=== PATIENT | male | born 1960 | race Caucasian/White ===

== ENCOUNTER 2025-05-26 14:10 | Outpatient (AMB) | payer MEDICARE, MEDICAID, SELFPAY ==
--- NOTE | 2025-05-26 14:06 | HO.NEPHOV_ITS ---
Vital Signs 05/26/25 14:09 Height 5 ft 7 in Weight 288 lb BMI 45.1 BP 124/62 Blood Pressure Location Lt brachial Position Sitting Pulse 96 Pulse Source Pulse Oximeter Pulse Oximetry (%) 96 Oxygen Delivery Method Room Air Intake Visit Reasons: ENP: Diabetic kidney disease [place] Operator Required: No Accompanied by: Self / Same As Patient Allergies No Known Allergies Allergy (Verified 05/26/25 14:13) HPI Comments Details: The patient is a 64 year old individual presenting for evaluation of a change in kidney function. Blood tests from March showed kidney function was around 39%. The patient has a long-standing history of diabetes mellitus for many years, which is reportedly under control with a recent A1C under 6. The patient reports no protein in the urine and denies a history of high blood pressure. There is no personal or family history of heart problems, congestive heart failure, or kidney problems. The patient reports some chronic puffiness in the legs and has been on two diuretics, furosemide and metolazone, for a while. Medications include lisino pril 5 mg, Farxiga, furosemide, metolazone taken at night, and potassium supplements (two pills in the morning and two in the evening). The patient denies the use of NSAIDs like Aleve, Advil, or Motrin. [facility] Medical History (Updated 05/26/25 @ 14:24 by David Akbar MD) Unsteady gait when walking CKD (chronic kidney disease) Vitamin deficiency GERD (gastroesophageal reflux disease) Diabetes mellitus with stage 3 chronic kidney disease Hypercalcemia Morbid obesity Mixed hyperlipidemia Essential hypertension Diabetes Venous stasis of both lower extremities Diabetes mellitus with nephropathy Gout Surgical History History of vasectomy Review of Systems Const Denies fever(s) and Denies weight loss Card Denies chest pain Resp Denies cough and Denies hemoptysis GI Denies abdominal pain, Denies diarrhea and Denies nausea Musc Denies back pain Neuro Denies focal weakness Physical Exam Vital Signs: Last Vital Signs Pulse 96 05/26/25 14:09 BP 124/62 05/26/25 14:09 Pulse Ox 96 05/26/25 14:09 Oxygen Delivery Method Room Air 05/26/25 14:09 BMI result Body Mass Index 45.1 Comfortable Obese Neck supple no JVD. Lungs entry equal no rales. Heart S1-S2 heard no gallop or rub. Abdomen soft nontender. Neuro alert awake oriented. No asterixis. Extremities 1 + edema with pigmentary changes. Assessment & Plan Assessment & Plan (1) CKD (chronic kidney disease): Code(s): N18.9 - Chronic kidney disease, unspecified Category: Medical Plan 1. Chronic Kidney Disease Likely has diabetic kidney disease. The could be a component of acute kidney injury due to hypoperfusion from diuretics. - The patient's kidney function is noted to be at 39%, - It is recommended to discontinue metolazone and use it only as needed for significant leg swelling to assess its impact on kidney function. - The patient will continue lisinopril and Farxiga, which are beneficial for kidney protection. - Blood work will be ordered for next week to recheck kidney function and pot assium levels. - A renal ultrasound will be arranged to further evaluate the kidneys. - A report will be sent to Dr. Xavier. 2. Type 2 Diabetes Mellitus With Chronic Kidney Disease - The patient has a long history of diabetes, which is a likely contributor to the decreased kidney function. - Urine tests will be ordered to check for proteinuria, - The patient will continue taking Farxiga 3. Edema In Lower Extremities - The patient is on two diuretics, furosemide and metolazone, for leg swelling. - The plan is to stop daily metolazone and use it only as needed if swelling increases. - With the reduction in diuretic use, potassium supplementation will be decreased from two pills twice a day to two pills once a day. - The patient was advised to reduce salt in the diet to help manage fluid retention. Orders: Orders UA and rflx microscopic 1 Week N18.9 - Chronic kidney disease, unspecified Complete Blood Count no Diff 1 Week N18.9 - Chronic kidney disease, unspecified US renal BI 1 Week N18.9 - Chronic kidney disease, unspecified Basic Metabolic Panel 1 Week N18.9 - Chronic kidney disease, unspecified Creatinine Urine 1 Week N18.9 - Chronic kidney disease, unspecified Total Protein Urine Random 1 Week N18.9 - Chronic kidney disease, unspecified Coding Level of Care Code New Pt Level 4 (58244) Diagnoses CKD (chronic kidney disease) N18.9
[2025-05-26 14:09] VITALS: BP 124/62; PULSE 96; O2SAT 96; BMI 45.1
--- OUTSIDE RECORDS SUMMARY | 2025-05-26 17:09 | XMS_ITS ---
Author Name [facility] Organization Unknown History of Medication Use Medication Directions Dispensed Refills Start Date End Date Stat rosuvastatin 20 mg tablet Take 1 tablet by mouth once daily 07/27/2024 active Trulicity 1.5 mg/0.5 mL subcutaneous pen injector INJECT 1/2 (ONE-HALF) ML SUBCUTANEOUSLY ONCE A WEEK 07/06/2024 active FreeStyle Kevyn 14 Day Sensor kit USE DIRECTED CHANGE EVERY 14 DAYS 06/30/2024 active Lantus Solostar U-100 Insulin 100 unit/mL (3 mL) subcutaneous pen INJECT 50 UNITS SUBCUTANEOUSLY IN THE MORNING AND 40 IN THE EVENING 06/30/2024 active Trulicity 0.75 mg/0.5 mL subcutaneous pen injector Inject 0.5 mL (0.75 mg total) under the skin every 7 days. 10/02/2023 4 completed meloxicam 15 mg tablet Take 1 tablet (15 mg total) by mouth daily. 01/17/2022 5 completed lisinopril 5 mg tablet 1 tablet (5 mg total) daily. 07/21/2018 active Levemir FlexTouch U-100 Insulin 100 unit/mL (3 mL) subcutaneous pen 20u in am, 80u in pm 06/17/2018 5 completed Farxiga 10 mg tablet 1 tablet (10 mg total) daily. 06/03/2018 active furosemide 40 mg tablet 1 tablet (40 mg total) daily. 05/26/2018 active metolazone 2.5 mg tablet 1 tablet (2.5 mg total) daily. 05/26/2018 active insulin lispro (U-100) 100 unit/mL subcutaneous pen Inject under the skin. 5 completed aspirin 81 mg tablet,delayed release Take 1 tablet (81 mg total) by mouth daily. active cyanocobalamin (vit B-12) 1,000 mcg tablet Take by mouth. active febuxostat 40 mg tablet Take by mouth. active rosuvastatin 10 mg tablet active aspirin enteric coated (Maribel Aspirin EC Low Dose) 81 MG EC tablet Take 81 mg by mouth daily. active dapagliflozin (dapagliflozin) 10 MG tablet Take by mouth every morning. active dulaglutide (TRULICITY) 1.5 MG/0.5ML prefilled pen injection Inject 1.5 mg under the skin once a week. active febuxostat (ULORIC) 40 MG tablet Take 40 mg by mouth daily. active furosemide (LASIX) 40 MG tablet Take 40 mg by mouth daily. active lisinopril (PRINIVIL,ZeSTRIL) 5 MG tablet Take 5 mg by mouth daily. active MELOXICAM PO Take by mouth. acti ve metolazone (ZAROXOLYN) 2.5 MG tablet Take 2.5 mg by mouth every morning. active rosuvastatin (CRESTOR) 20 MG tablet Take 20 mg by mouth daily. 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, subsequent encounter active [facility] Encounters Encounter Type Encounter Reason Primary Diagnosis Location Date Ambulatory [facility], 12/2024 Ambulatory [facility], 07/2024 Ambulatory [facility], 09/30 Ambulatory [facility], 01/2025 Ambulatory [facility], 05/02 Ambulatory 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, 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, subsequent encounter [facility] 02/12/2023 Ambulatory Unilateral prima ry osteoarthritis, right knee [facility] 10/25/2021 Ambulatory Unilateral prima ry osteoarthritis, right knee [facility] 10/18/2021 Ambulatory Unilateral prima ry osteoarthritis, right knee [facility] 10/11/2021 Ambulatory Unilateral prima ry osteoarthritis, right knee [facility] 10/04/2021 Ambulatory Unilateral prima ry osteoarthritis, right knee [facility] 09/18/2021 Ambulatory [facility] 09/11/2021 Ambulatory Unilateral prima ry osteoarthritis, right knee [facility] 09/06/2021 Ambulatory [facility] 09/04/2021 Ambulatory Unilateral prima ry osteoarthritis, right knee [facility] 09/01/2021 Ambulatory Unilateral prima ry osteoarthritis, right knee [facility] 08/29/2021 Ambulatory Unilateral prima ry osteoarthritis, right knee [facility] 08/22/2021 Ambulatory Unilateral prima ry osteoarthritis, right knee [facility] 08/18/2021 Care Team Organization Name Specialty Phone Email Start Date End Da te [facility] Historical CCDA backload 04/16/2025 [facility] - Varsha CCDA 12/11/2024 05/18/2025 [facility] - Varsha ADT 12/11/2024 05/18/2025 [facility] - Varsha CCDA 11/30/2024 12/02/2024 [facility], KADE XAVIER, Primary Care 10/08/2024 [facility] Micky Herr Primary Care 03/07/20232023 [facility] Zee, PROVIDER Primary Care 05/08/202201/29 [facility] Kade Xavier Primary Care 10/25/2021 [facility] [employer] [facility] KADE XAVIER Primary Care 08/18/2021 10/26/19
--- OUTSIDE RECORDS SUMMARY | 2025-05-26 17:09 | XMS_ITS | Continuity of Care Document ---
Author Organization [place] [facility] [address] [place] Address [address] [place] [address] Care Team Providers Care Auricular Therapist Name Role Phone KADE PERDUE Primary Care Provider KADE PERDUE Referring Provider ORESTES TIWARI Color Buffer Unavailable Assessment No assessment recorded. Plan of Treatment Reminders Order Date Submit Date Provider Last Modified By Organization Details Last Modified Time Details Appointments OFFICE VISIT 15 2025 09:45A M Not available Not available Not available Lab glucose, fingersti ck, blood 2024 025 [facility] [address] [place], [address], [place], [address], 04/06/2025 10:57:46 hemoglobi n A1C, fingersti ck 2024 025 [facility] [place], [address], [place], [address], 04/06/2025 10:57:46 lipid panel, serum 2024 025 [facility], [address], [address], [place], [address], 04/06/2025 10:58:45 BMP, serum or plasma 2024 025 [facility], [address], [address], [place], [address], 04/06/2025 10:58:45 Referral None recorded. Procedures None recorded. Surgeries None recorded. Imaging None recorded. Medication Orders None recorded. Patient TargetsNo targets recorded. Patient Instructions Encounter Date Encounter Id Patient Instructions Last Modified By Organization Details Last Modified Time 04/06/2025 [id number] When You Want to Lose Weight: Care Instructions Not available 04/06/2025 11:02:04 1. Your A1c ade rodriguez today was measured at 5.9% excellent numbers. I downloaded your continuous glucose monitor your numbers look excellent. You are missing the at nighttime is important to test your sugars every 8 hours to make sure that we get the information on the monitor. Be sure that you test before going to bed and before your meals. That usually will be enough. Not available 04/06/2025 10:57:17 Reason for Referral None Reported. Results Created Date Observation Date Name Description Value Unit Range Abnormal Flag Note LastModifiedBy Organization Detail LastModifiedTime 04/06/2004/06/2025 hemog lobin A1C, buckcarol rstic k HbA1c 5.9 Not Available [facility] [address] [place] [address], [place], [address], 03/30/2025 11:47:17 04/06/2004/06/2025 gluco se, jen rstic k, blood Blood Glucose: mg/dl 101 Not Available [facility] [address] [place] [address], [place], [address], 03/30/2025 11:47:16 Result Notes None recorded. Problems Name Problem SNOMED Code Status Onset Date Resolution Date Notes Provider Name and Address Organization Details Recorded Time Morbid obesity 300184530 Active 2018 Morbid obesity due to excess calories Orestes Tiwari MD [address] [place], [address] , [facility] [employer] 5 11:01:18 Diabetes mellitus 86666750 Active 2018 Diabetes mellitus Not Available [facility] 4 21:23:09 Essential hypertens ion 12521421 Active 2018 Hypertens ion, essential Not Available [facility] 4 21:23:09 Uncontrol led type 2 diabetes mellitus 984660256 Active 2024 Kim Starks null, [facility] 5 10:17:50 Hyperglyc emia due to type 2 diabetes mellitus 46427647759 9109 Active 2024 LUIS BUITRAGO null, [facility] 5 11:47:14 Problem Notes None recorded. Medical Equipment None Reported. Allergies Allergen ID Allergen Name Allergen Category Reaction Reaction Severity Criticality Documentation Date Start Date Code Code System Note Provider Name and Address Organization Details Recorded Time 79439 Trichophy ton mentagrop hytes allergeni c extract medicatio n Not available Not available Not available 06/01/20242018 44655 7 RxNorm Not Available [facility] 4 20:50:59 80094 animal dander environme nt Not available Not available Not available 06/01/20242018 Not Available [facility] 4 20:50:59 Medications Name Sig Start Date Stop Date Status Note LastModified by Organization Details LastModified Time furosemide 40 mg tablet 1 tablet (40 mg total) daily. 2017 active Not Available Not Available Not Avai lable metolazone 2.5 mg tablet 1 tablet (2.5 mg total) daily. 2017 active Not Available Not Available Not Avai lable meloxicam 15 mg tablet Take 1 tablet (15 mg total) by mouth daily. 10/06 completed Not Available Not Available Not Available cyanocobala min (vit B-12) 1,000 mcg tablet Take by mouth. active Not Available Not Available No t Available aspirin 81 mg tablet,abelardo yed release Take 1 tablet (81 mg total) by mouth daily. active Not Available Not Available No t Available lisinopril 5 mg tablet 1 tablet (5 mg total) daily. 2018 active Not Available Not Available Not Avai lable insulin lispro (U-100) 100 unit/mL subcutaneou s pen Inject under the skin. 10/06 completed Not Available Not Available Not Available rosuvastati n 10 mg tablet active Not Available Not Available Not Available rosuvastati n 20 mg tablet Take 1 tablet by mouth once daily 2024 active Not Available Not Available Not Avai lable Lantus Solostar U-100 Insulin 100 unit/mL (3 mL) subcutaneou s pen INJECT 50 UNITS SUBCUTANE OUSLY SUBCUTANE OUSLY IN THE MORNING AND 40 UNITS IN THE EVENING 2024 active Not Available Not Available Not Avai lable febuxostat 40 mg tablet Take by mouth. active Not Available Not Available No t Available Farxiga 10 mg tablet 1 tablet (10 mg total) daily. 2017 active Not Available Not Available Not Avai lable Levemir FlexTouch U-100 Insulin 100 unit/mL (3 mL) subcutaneou s pen 20u in am, 80u in pm 10/06 completed Not Available Not Available Not Available Trulicity 1.5 mg/0.5 mL subcutaneou s pen injector INJECT 1 PEN UNDER THE SKIN ONCE A WEEK 2024 active Not Available Not Available Not Avai lable Trulicity 0.75 mg/0.5 mL subcutaneou s pen injector Inject 0.5 mL (0.75 mg total) under the skin every 7 days. 03/17 completed Not Available Not Available Not Available FreeStyle Kevyn 14 Day Sensor kit USE DIRECTED CHANGE EVERY 14 DAYS 2023 active Not Available Not Available Not Avai lable Vitals Date Recorded Body height Body mass index (BMI) Body weight Oxygen saturation Heart rate Systolic And Diastolic Provider Name and Address Organization Details Last Updated DateTime 5 172.72 cm 43.6 kg/m2 844127. 01 g 97 % 95 /min 115/60 mm[Hg] [facility] 5 10:39:51 Social History None recorded. Functional Status None recorded. Mental Status None recorded. Family History Nothing Reported. Medical History No medical history recorded. Past Encounters Encounter ID Performer Location Encounter Start Date Encounter Closed Date Diagnosis/Indication Diagnosis SNOMED-CT Code Diagnosis ICD10 Code Diagnosis IMO Codes Diagnosis Note [id number] Orestes Tiwari MD [facility] [address] [place] [address] 04/06/2025 10:00:46 04/06/2025 10:59:49 Hyperglycemia due to type 2 diabetes mellitus 9487870882 28340 E11.65 Z79.4 87387385 A1c level is now at 5.9%. The continuous glucose monitor was downloaded numbers have been on target 91% of the time with a GMI of 5.8% a variabilit y of 30.9%. He is experienci ng occasional low numbers some of them are happening at midnight. He had been on 50 units of Lantus in the morning 40 units in the evening along with Farxiga and Trulicity. His number continues to do very well will continue with the current regimen.I want him to lower down his insulin to 40 units in the morning and 36 units in the evening. We talk about using a different type of insulin however his insurance is very peculiar. He already has plenty of supplies of the Lantus. Will continue with the Lantus. Morbid obesity 452182788 E66.01 08766 He has been on Trulicity as well as following diet. His BMI today was at 43.6%.He has difficulty doing any kind of activity due to knee problems.W e talk about the doing exercises with bands and doing things while sitting down on a chair or in bed. Health Concerns Section Related Observation LastModified by Organization Detai ls LastModified Time None Recorded Concern Status LastModified by Organization Details LastModified Time None Recorded Payers Encounter Date Sequence Insurance Name Policy Number Policy Dubose Covered Member ID Dubose Member ID Guarantor Name 04/06/2025 2 [employer] (MEDICARE REPLACEMENT/ ADVANTAGE - PPO) [id number] Emmanuel Gracia [id number] Emmanuel Gracia 04/06/2025 1 [place] Emmanuel Gracia [id number] Emmanuel Gracia Notes Date Note Type Note Provider Name and Address Organization Details Recorded Time 04/06/2025 text/html Patient is a 64 y.o. male who presents with 2 diabetes that has some problems with control.He developed diabetes almost 30 years ago. Started on metformin and eventually insulin was added. Surgical history include a vasectomy and tonsillectomy.Has a new insurance had to change his insulin from Levemir to Lantus.Currently taking Lantus 50 units in the morning 40 units in the evening.. Continues to take Trulicity once a week and the Farxiga 10 mg daily.His capillary blood sugars have been stable.He is using a kevyn. Very happy with the results and the flexibility.He does not imbibe alcohol. 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 Orestes Tiwari MD [address] [place], [address], [facility] [employer] 04/06/2025 11:02:46
--- OUTSIDE RECORDS SUMMARY | 2025-05-26 17:09 | XMS_ITS | Clinical Summary ---
Author Organization [facility] Address [address] [place] [address] Care Team Providers Care Process Expert Name Role Phone Klaus Xavier MD Primary Care Provider [phone] Klaus Xavier MD Unavailable [phone] Allergies No known active allergies Medications MELOXICAM PO Take by mouth. Active lisinopril (PRINIVIL,ZeSTRI L) 5 MG tablet Take 5 mg by mouth daily. Active furosemide (LASIX) 40 MG tablet Take 40 mg by mouth daily. Active Insulin Lispro (ADMELOG SOLOSTAR SC) Inject under the skin. Active aspirin enteric coated (Maribel Aspirin EC Low Dose) 81 MG EC tablet Take 81 mg by mouth daily. Active dapagliflozin (dapagliflozin) 10 MG tablet Take by mouth every morning. Active metolazone (ZAROXOLYN) 2.5 MG tablet Take 2.5 mg by mouth every morning. Active febuxostat (ULORIC) 40 MG tablet Take 40 mg by mouth daily. Active rosuvastatin (CRESTOR) 20 MG tablet Take 20 mg by mouth daily. Active dulaglutide (TRULICITY) 1.5 MG/0.5ML prefilled pen injection Inject 1.5 mg under the skin once a week. Active Active Problems No known active problems Social History Tobacco Use Types Packs/Day Years Used Date Smoking Tobacco: Never Assessed Sex and Gender Information Value Date Recorded Sex Assigned at Male 02/11/2023 9:04 AM EDT Legal Sex Male 3:44 PM EDT Gender Identity Male 02/11/2023 9:04 AM EDT Sexual Orientation Heterosexual (straight) 02/11 9:04 AM EDT Plan of Treatment Health Maintenance Due Date Last Done Comments Advance Care Planning 1960 Hepatitis C Virus Screening 1960 HIV Screening 10/09/1972 DTaP/Tdap/Td Vaccines (1 - Tdap) 10/09/1978 Colonoscopy 10/09/2004 Pneumococcal Vaccines 50+ (1 of 1 - PCV) 10/09/2009 RSV Vaccine 50 years and older and Patients (1 - Risk 50-74 years 1-dose series) 10/09/2009 Zoster (Shingles) Vaccine (1 of 2) 10/09/2009 Influenza Vaccine 01/29/2025 04/20/2021, 03/25/2020 COVID-19 Vaccine (2024-2 6 season) 2025 04/28/2021, 10/07/2020, 09/15/2020 Hepatitis B Vaccines Aged Out No long er eligible based on patient's age to complete this topic Insurance [employer] INDIVIDUAL EXCHANGE PPO [facility] [employer] Member Subscriber Plan / Payer (Ef fective 2023-Present) Name:Emmanuel Gracia Relation to Subscriber:Employee Name:[employer] Date of :1900 Address: [address] [place] [address] Payer ID:Not on file Group ID:Not on file Type:Workers Compensation Address: [address] [employer] Care Teams Process Expert Relationship Specialty Start Date End Date Klaus Xavier MD [address] [place] [address] PCP - General Internal Medicine 08/17/21 Klaus Xavier MD [address] [place] [address] PCP - [employer] Medicare Attributed 09/29/24
--- OUTSIDE RECORDS SUMMARY | 2025-05-26 17:09 | XMS_ITS | Clinical Summary ---
Author Organization [facility] Address [address] [place] [address] Care Team Providers Care Ramp Agent Name Role Phone Klaus Xavier MD Primary Care Provider [phone] Allergies Active Allergy Reactions Criticality Noted Date Comments Animal Dander 08/12/2018 Trichophyton 08/12/2018 Medications Medication Sig Dispensed Refills Start Date End Date Status febuxostat (ULORIC) 40 MG tablet Take by mouth. 0 Active FARXIGA 10 MG TABS 1 tablet (10 mg total) daily. 0 06/03/2018 Active furosemide (LASIX) 40 MG tablet 1 tablet (40 mg total) daily. 0 05/26/2018 Active lisinopril (PRINIVIL,ZESTRIL) tablet 5 mg 1 tablet (5 mg total) daily. 0 07/21/2018 Active LEVEMIR FLEXTOUCH 100 UNIT/ML injection 20u in am, 80u in pm 0 06/17/2018 Acti ve metOLazone (ZAROXOLYN) 2.5 MG tablet 1 tablet (2.5 mg total) daily. 0 05/26/2018 Active Cyanocobalamin (VITAMIN B12) 1000 MCG TBCR Take by mouth. 0 Active Magnesium 400 MG TABS Take by mouth. 0 Active Potassium (POTASSIMIN PO) Take by mouth. 0 Activ e Carolina-3 Fatty Acids (FISH OIL PO) Take by mouth. 0 Active aspirin EC 81 MG tablet Take 1 tablet (81 mg total) by mouth daily. 0 Active Continuous Blood Gluc Head Host/Hostess (FreeStyle Kevyn 14 Day Rye) DEVIIndications:Ty pe 2 diabetes mellitus without complication, with long-term current use of insulin (HCC) 1 Device by Does not apply route daily. 1 each 0 01/24/2022 Active meloxicam (MOBIC) 15 MG tablet Take 1 tablet (15 mg total) by mouth daily. 0 01/17/2022 Active B-D ULTRAFINE III SHORT PEN 31G X 8 MM MISC USE 1 ONCE DAILY 0 11/20/2021 Active Insulin Lispro, 1 Unit Dial, 100 UNIT/ML SOPN Inject under the skin. 0 Active MELOXICAM PO Take by mouth. 0 Active Trulicity 1.5 MG/0.5ML subcutaneous pen-injectorIndica tions:Type 2 diabetes mellitus with hyperglycemia, with long-term current use of insulin (HCC) INJECT 1/2 (ONE-HALF) ML SUBCUTANEOUSLY ONCE A WEEK 4 mL 0 03/27/2024 Active dulaglutide (Trulicity) 1.5 MG/0.5ML subcutaneous pen-injectorIndica tions:Type 2 diabetes mellitus with hyperglycemia, with long-term current use of insulin (HCC) INJECT 1/2 (ONE-HALF) ML SUBCUTANEOUSLY ONCE A WEEK 4 mL 3 03/17/2024 Active Lantus SoloStar 100 UNIT/ML injectionIndicatio ns:Type 2 diabetes mellitus with hyperglycemia, with long-term current use of insulin (HCC) INJECT 50 UNITS SUBCUTANEOUSLY IN THE MORNING AND 40 IN THE EVENING 75 mL 0 03/30/2024 Active rosuvastatin (CRESTOR) tablet 20 mgIndications:Type 2 diabetes mellitus without complication, with long-term current use of insulin (HCC) Take 1 tablet by mouth once daily 90 tablet 0 04/28/2024 Active Continuous Glucose Sensor (FreeStyle Kevyn 14 Day Sensor) MISCIndications:Ty pe 2 diabetes mellitus without complication, with long-term current use of insulin (HCC) USE SENSOR DIRECTED CHANGE EVERY 14 DAYS 2 each 0 05/25/2024 Active Active Problems Problem Noted Date Diagnosed Date Diabetes mellitus 10/07/2018 Morbid obesity due to excess calories 10/07/2018 Hypertension, essential 10/07/2018 Social History Tobacco Use Types Packs/Day Years Used Date Smoking Tobacco: Never Smokeless Tobacco: Never Sex and Gender Information Value Date Recorded Sex Assigned at Not on file Gender Identity Not on file Sexual Orientation Not on file Job Start Date Occupation Industry Not on file Not on file Not on file Last Filed Vital Signs Vital Sign Reading Time Taken Comments Blood Pressure 115/60 08/14/2022 3:53 PM EST Pulse 89 08/14/2022 3:53 PM EST Temperature 36 C (96.8 F) 02/13/2022 2:40 PM EDT Respiratory Rate - - Oxygen Saturation 94% 08/14/2022 3:53 PM EST Inhaled Oxygen Concentration - - Weight 140.6 kg (310 lb) 08/14/2022 3:53 PM EST Height 171.5 cm (5' 7.5 ) 08/25/2019 9:29 AM EST Body Mass Index 47.84 08/25/2019 9:29 AM EST Plan of Treatment Health Maintenance Due Date Last Done Comments Hepatitis C Screening 1960 Pneumococcal Vaccine (1 of 2 - PCV) 10/09/1965 Pneumococcal Vaccine (1 of 2 - PCV) 10/09/1965 Depression Screening 1971 BMI Counseling 10/09/1977 Diabetes: Eye Exam (No Retinopathy) 10/09/1977 Preventative Health Evaluation 10/09/1977 DTap / Tdap / Td (1 - Tdap) 10/09/1978 Colon Cancer Screening (Colonoscopy) 10/09/2004 RSV Adult > 60+ Yrs or (1 - Risk 60-74 years 1-dose series) 2019 Diabetes: Microalbumin Test 02/04/2022 08/0 12/2020, 08/20/2019, 06/08/2016 Hemoglobin A1C Due 02/11/2023 08/14/2022, 0 02/13/2022, 01/31/2021, Additional history exists Diabetes: Foot Exam 08/14/2023 08/14/2022, 02/13/2022, 01/31/2021, Additional history exists Fall Risk Assessment 10/09/2024 COVID-19 Vaccine ( season) 2025 04/28/2021, 10/07/2020, 09/15/2020 Influenza Vaccine (#1) 2025 2, 04/20/2021, 03/25/2020 Shingrix-Zoster Vaccine Completed 06/10/2020, 03/25 Hepatitis B Vaccines Aged Out No long er eligible based on patient's age to complete this topic RSV Ped < 20 months Aged Out No longe r eligible based on patient's age to complete this topic Advance Directives For more information, please contact: [phone] Documents on File Type Date Recorded Patient Automatic Log Cut Off Sawyer Expl anation Advance Directive and Living Will 02/10/2019 12:56 PM Care Teams Ramp Agent Relationship Specialty Start Date End Date Klaus Xavier MD [address] [place] [address] PCP - General Internal Medicine 10/20/15
--- OUTSIDE RECORDS SUMMARY | 2025-05-26 17:09 | XMS_ITS | Data Portability ---
Author Organization [place] [facility] PEllisCEllis, [facility] Address [address] [place] [address] Care Team Providers Care Circulation Librarian Name Role Phone KADE PERDUE Primary Care Provider KADE PERDUE Referring Provider PRITI TIWARI Tawer Unavailable Assessment No assessment recorded. Plan of Treatment Reminders Order Date Submit Date Provider Last Modified By Organization Details Last Modified Time Details Appointments OFFICE VISIT 15 2025 09:45A M Not available Not available Not available Lab glucose, fingersti ck, blood 2024 025 [facility] [address] [place], [address], [place], [address], 04/06/2025 10:57:46 hemoglobi n A1C, fingersti ck 2024 025 [facility] [place], [address], [place], [address], 04/06/2025 10:57:46 lipid panel, serum 2024 025 [facility], [address], [address], [place], [address], 04/06/2025 10:58:45 BMP, serum or plasma 2024 025 [facility], [address], [address], [place], [address], 04/06/2025 10:58:45 glucose, fingersti ck, blood 2024 025 [facility] [place], [address], [place], [address], 10/06/2024 10:07:03 HbA1c (hemoglob in A1c), blood 2024 025 [facility], [address], [address], [place], [address], 10/28/2024 03:10:42 lipid panel, serum 2024 025 [facility], [address], [address], [place], [address], 10/28/2024 03:10:40 BMP, serum or plasma 2024 025 [facility], [address], [address], [place], [address], 10/28/2024 03:10:41 Referral None recorded. Procedures None recorded. Surgeries None recorded. Imaging None recorded. Medication Orders None recorded. Patient TargetsNo targets recorded. Patient Instructions Encounter Date Encounter Id Patient Instructions Last Modified By Organization Details Last Modified Time 10/06/2024 [id number] your glucose numbers are excellent. We could not do an A1c in the office please go to the lab to get studies requested. Not available 10/06/2024 10:09:48 04/06/2025 [id number] When You Want to Lose Weight: Care [...] Abnormal Flag Note LastModifiedBy Organization Detail LastModifiedTime 10/07/19 25 10/06/2024 gluco se, finge rstic k, blood Blood Glucose: mg/dl 164 Not Available [facility] [address] [place] [address], [place], [address], 09/29/2024 10:17:54 10/28/19 25 10/28/2024 LIPID PANEL , STAND NICOLAS cholesterol, total 158 mg/dL <200 normal Not Available [facility] [address], [place], [address], 10/28/2024 03:10:40 10/28/19 25 10/28/2024 LIPID PANEL , STAND NICOLAS HDL cholesterol 49 mg/dL > or = 40 normal Not Available [facility] [address], [place], [address], 10/28/2024 03:10:40 10/28/19 25 10/28/2024 LIPID PANEL , STAND NICOLAS triglyceride s 188 mg/dL <150 high Not Available [facility] [address], [place], [address], 10/28/2024 03:10:40 10/28/19 25 10/28/2024 LIPID PANEL , STAND INCOLAS LDL-choleste rol 81 mg/dL _(evelin c) normal Refer ence range : <100 Arik able range <100 mg/dL for prima ry preve ntion ; <70 mg/dL for patie nts with CHD or diabe tic patie nts with > or = 2 CHD risk facto rs. LDL-C is now calcu lated using the Araceli n-Hop kins ros ken n, which is a valid ated novel aneudy navarrete than the Fried gail equat ion in the estim ation of LDL-C . Araceli ARENAS et al. KAREEM. 2013; 310(1 9): 2061- 2068 (http ://ed sheelaati on.Qu estDebora higginbothamSomewheres. com/f aq/FA Q164) Not Available [facility] [place] [facility] [address], [place], [address], 10/28/2024 03:10:40 10/28/19 25 10/28/2024 LIPID PANEL , STAND NICOLAS chol/HDLC ratio 3.2 (calc ) <5.0 normal Not Available [facility] [place] [facility] [address], [place], [address], 10/28/2024 03:10:40 10/28/19 25 10/28/2024 LIPID PANEL , STAND NICOLAS non HDL cholesterol 109 mg/dL _(evelin c) <130 normal For patie nts with diabe corina plus 1 major ASCVD risk facto r, treat ing to a non-H DL-C goal of <100 mg/dL (LDL- C of <70 mg/dL ) is consi dered a thera peuti c optio n. Not Available [facility] [place] [facility] [address], [place], [address], 10/28/2024 03:10:40 10/28/1910/28/2024 BASIC METAB OLIC PANEL glucose 107 mg/dL 65-99 high Fasti ng refer ence inter jhonatan For someo ne witho ut known diabe corina, a gluco se value betwe en 100 and 125 mg/dL is consi stent with predi abete s and shoul d be confi rmed with a follo w-up test. Not Available [facility] [place] [facility] [address], [place], [address], 10/28/2024 03:10:41 10/28/1910/28/2024 BASIC METAB OLIC PANEL urea nitrogen (BUN) 53 mg/dL 7-25 high Not Available [facility] [place] [facility] [address], [place], [address], 10/28/2024 03:10:41 10/28/19 25 10/28/2024 BASIC METAB OLIC PANEL creatinine 1.54 mg/dL 0.70-1 .35 high Not Available [facility] [address], [address], 10/28/2024 03:10:41 10/28/19 25 10/28/2024 BASIC METAB OLIC PANEL eGFR 50 mL/mi n/1.7 3m2 > or = 60 low Not Available [facility] [address], [place], [address], 10/28/2024 03:10:41 10/28/19 25 10/28/2024 BASIC METAB OLIC PANEL BUN/creatini ne ratio 34 (calc ) 6-22 high Not Available [facility] [place] [facility] [address], [place], [address], 10/28/2024 03:10:41 10/28/19 25 10/28/2024 BASIC METAB OLIC PANEL sodium 134 mmol/ L 135-14 6 low Not Available [facility] [address], [place], [address], 10/28/2024 03:10:41 10/28/19 25 10/28/2024 BASIC METAB OLIC PANEL potassium 4.2 mmol/ L 3.5-5. 3 normal Not Available [facility] [address], [address], 10/28/2024 03:10:41 10/28/19 25 10/28/2024 BASIC METAB OLIC PANEL chloride 94 mmol/ L 98-110 low Not Available [facility] [address], [address], 10/28/2024 03:10:41 10/28/19 25 10/28/2024 BASIC METAB OLIC PANEL carbon dioxide 29 mmol/ L 20-32 normal Not Available [facility] [address] [place], [address], 10/28/2024 03:10:41 10/28/19 25 10/28/2024 BASIC METAB OLIC PANEL calcium 9.9 mg/dL 8.6-10 .3 normal Not Available [facility] [place] [facility] [address], [place], [address], 10/28/2024 03:10:41 10/28/19 25 10/28/2024 HEMOG LOBIN A1C hemoglobin A1C 6.5 % <5.7 high For someo ne witho ut known diabe corina, a hemog lobin A1c value of 6.5% or great er indic ates that they may have diabe corina and this shoul d be confi rmed with a follo w-up test. For someo ne with known diabe corina, a value <7% indic ates that their diabe corina is well contr olled and a value great er than or equal to 7% indic ates subop timal contr ol. A1c targe ts shoul d be indiv idual ized based on durat ion of diabe corina, age, comor bid condi tions , and other consi derat ions. Curre ntly, no conse nsus exist s daisy wells use of hemog lobin A1c for diagn osis of diabe corina for child carmen. Not Available [facility] [place] [facility] [address], [place], [address], 10/28/2024 03:10:42 04/06/20 25 04/06/2025 hemog lobin A1C, finge rstic k HbA1c 5.9 Not Available [facility] [address] [place] [address], [place], [address], 03/30/2025 11:47:17 04/06/20 25 04/06/2025 gluco se, finge rstic k, blood Blood Glucose: mg/dl 101 Not Available [facility] [address] [place] [address], [place], [address], 03/30/2025 11:47:16 Result Notes None recorded. Problems Name Problem SNOMED Code Status Onset Date Resolution Date Notes Provider Name and Address Organization Details Recorded Time Morbid obesity 652022476 Active 2018 Morbid obesity due to excess calories Priti Tiwari MD [address] [place], [address] , [facility] 5 11:01:18 Diabetes mellitus 22934713 Active 2018 Diabetes mellitus Not Available [facility] 4 21:23:09 Essential hypertens ion 52660307 Active 2018 Hypertens ion, essential Not Available [facility] 4 21:23:09 Uncontrol led type 2 diabetes mellitus 125360541 Active 2024 Kim corey, [facility] 5 10:17:50 Hyperglyc emia due to type 2 diabetes mellitus 57638877922 9109 Active 2024 LUIS CHAUDHARYAna Maria corey, [facility] 5 11:47:14 Problem Notes None recorded. Medical Equipment None Reported. Allergies Allergen ID Allergen Name Allergen Category Reaction Reaction Severity Criticality Documentation Date Start Date Code Code System Note Provider Name and Address Organization Details Recorded Time 90660 Trichophy ton mentagrop hytes allergeni c extract medicatio n Not available Not available Not available 06/01/20242018 24779 7 RxNorm Not Available [facility] 4 20:50:59 28052 animal dander environme nt Not available Not available Not available 06/01/20242018 Not Available [facility] 4 20:50:59 Medications Name Sig Start [...] Not Avai lable Vitals Date Recorded Body weight Body mass index (BMI) Body height Heart rate Oxygen saturation Systolic And Diastolic Provider Name and Address Organization Details Last Updated DateTime 5 741374. 12 g 45.5 kg/m2 172.72 cm 111 /min 94 % 120/72 mm[Hg] Kim Starks [facility] 09:53:04 Date Recorded Body height Body mass index (BMI) Body weight Oxygen saturation Heart rate Systolic And Diastolic Provider Name and Address Organization Details Last Updated DateTime 5 172.72 cm 43.6 kg/m2 774898. 01 g 97 % 95 /min 115/60 mm[Hg] LUIS BUITRAGO [facility] 10:39:51 Social History None recorded. Functional Status None recorded. Mental Status None recorded. Family History Nothing Reported. Medical History No medical history recorded. Past Encounters Encounter ID Performer Location Encounter Start Date Encounter Closed Date Diagnosis/Indication Diagnosis SNOMED-CT Code Diagnosis ICD10 Code Diagnosis IMO Codes Diagnosis Note [id number] Priti Tiwari MD [facility] [address] [place] [address] [place] [address] 10/06/2024 09:39:47 10/06/2024 10:10:53 Uncontrolled type 2 diabetes mellitus 521946013 E11.65 [id number] His last A1c level was excellent at 6.3%. He has been using a continuous glucose monitor which has helped him maintain better control. We could not do the A1c level this morning apparently there was an error message. Will send him to the laboratory to do that.He had been on 50 units of Lantus in the morning 40 units in the evening along with Farxiga and Trulicity. His number continues to do very well will continue with the current regimen. The continuous glucose monitor was downloaded . He only had numbers from August. He stopped using the monitor as his sensors were not covered by his insurance. He is working on a new insurance now. The numbers have been on target 91% of the time with a GMI of 6%.He brought a list of his blood sugars over the past month they have been running in the mid to low 100s. No episodes of hypoglycem ia the lowest was in the 90s. No long runs of blood sugars over the 140s. [id number] Priti Tiwari MD [facility] [address] [place] [address] [place] [address] 04/06/2025 10:00:46 04/06/2025 10:59:49 Hyperglycemia due to type 2 diabetes mellitus 5911716954 59238 E11.65 Z79.4 [id number] A1c level is now at 5.9%. The [...] Will continue with the Lantus. Morbid obesity 213087715 E66.01 [id number] He has been on Trulicity as well [...] by Organization Details LastModified Time None Recorded Advance Directives Directive None Recorded Payers Insurance Date Sequence Insurance Name Policy Number Policy Dubose Covered Member ID Dubose Member ID Guarantor Name 04/06/2025 1 [place] [id number] Emmanuel Gracia [id number] Emmanuel Gracia 04/06/2025 2 [employer] (MEDICARE REPLACEMENT/ ADVANTAGE - PPO) [id number] Emmanuel Gracia [id number] Emmanuel Gracia 04/06/2025 1 [place] Emmanuel Gracia [id number] Emmanuel Gracia 04/06/2025 1 [place] Emmanuel Gracia [id number] Emmanuel Gracia Notes Date Note Type Note Provider Name and Address Organization Details Recorded Time 10/06/2024 text/html Patient is a 62 y.o. male who presents with 2 diabetes [...] not imbibe alcohol. 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 Priti Tiwari MD [address] [place], [address], [email or web address] 10/06/2024 10:14:20 04/06/2025 text/html Patient is a 64 y.o. [...] not imbibe alcohol. 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 Priti Tiwari MD [address] [place], [address], [email or web address] 04/06/2025 11:02:46
== END 2025-05-26 14:27 | disposition home or self-care (01) ==
LOC: HO.HKAE 14:10
PROVIDERS: PCP Internal Medicine; Referring Provider Internal Medicine; Visit Provider Internal Medicine Hypertension Specialist
DX: N18.9 Chronic kidney disease, unspecified (principal)
CPT/HCPCS: 99204

== ENCOUNTER → 2025-05-26 14:10 | Outpatient (BNVA) | payer MEDICARE, MEDICAID, SELFPAY | PROVIDERS: PCP Internal Medicine; Referring Provider Internal Medicine; Visit Provider Internal Medicine Hypertension Specialist | DX: E11.22 Type 2 diabetes mellitus with diabetic chronic kidney disease (principal); I12.9 Hypertensive chronic kidney disease with stage 1 through stage 4 chronic kidney disease, or unspecified chronic kidney disease; N18.9 Chronic kidney disease, unspecified; R60.0 Localized edema; Z79.84 Long term (current) use of oral hypoglycemic drugs | CPT/HCPCS: 99202 ==